=== PATIENT | female | born 1990 | race Caucasian/White ===

== ENCOUNTER 2019-10-28 16:38 | Inpatient (IN) | payer MEDICAID, OTHER ==
[~2019-10-28 16:38] MED LIST: Lactated Ringers 1,000 ML IV SCH
[2019-10-28] MEDS ORDERED: Sodium Chloride 0.9% 10 ML Syringe FLUSH PRN (16:41)
--- NOTE | 2019-10-28 16:51 | PCM.LDHP ---
L&D History of Present Illness - General Date of Service: 10/28/19 Admit Problem/Dx: Patient Status Order with Admit Dx/Problem 10/28/19 16:41 Patient Status [ADT] Routine Admission Diagnosis/Problem Admission Diagnosis/Problem Source of Information: Patient History Limitations: Reports: No Limitations - Related Data Allergies/Adverse Reactions: Allergies Allergy/AdvReac Type Severity Reaction Status Date / Time Penicillins Allergy Rash Verified 10/28/19 15:30 Home Medications: Home Meds Pnv No.95/Ferrous Fum/Folic AC [ Multivitamin Tablet] 1 each PO DAILY [History] H&P Review of Systems - Review of Systems: Review Of Systems: See Below General: Reports: No Symptoms HEENT: Reports: No Symptoms Pulmonary: Reports: No Symptoms Cardiovascular: Reports: No Symptoms Gastrointestinal: Reports: No Symptoms Genitourinary: Reports: No Symptoms Musculoskeletal: Reports: No Symptoms Skin: Reports: No Symptoms Psychiatric: Reports: No Symptoms Neurological: Reports: No Symptoms Hematologic/Lymphatic: Reports: No Symptoms Immunologic: Reports: No Symptoms L&D Exam - Exam Exam: See Below - Vital Signs Vital Signs: Last Vital Signs Temp 36.1 C 10/28/19 16:00 Pulse 110 H 10/28/19 16:00 Resp BP 123/85 10/28/19 16:00 Pulse Ox 99 10/28/19 16:00 Weight: 73 kg - OB Specific Movement: Active Heart Tones: Present Heart Rate (FHR) Variability: Moderate (6-25 bmp) - Exam General: Alert, Oriented, Cooperative HEENT: PERRLA, Conjunctiva Clear, EACs Clear, EOMI, Hearing Intact, Mucosa Moist & [place], Nares Patent, Normal Nasal Septum, Posterior Pharynx Clear, TMs Clear Neck: Supple, Trachea Midline Lungs: Clear to Auscultation, Normal Respiratory Effort Cardiovascular: Regular Rate, Regular Rhythm GI/Abdominal Exam: Normal Bowel Sounds, Soft, Non-Tender, No Organomegaly, No Distention, No Abnormal Bruit, No Mass, Pelvis Stable Rectal Exam: Normal Exam, Normal Rectal Tone Genitourinary: Normal external exam, Normal bimanual exam, Normal speculum exam Back Exam: Normal Inspection, Full Range of Motion Extremities: Normal Inspection, Normal Range of Motion, Non-Tender, No Pedal Edema, Normal Capillary Refill Skin: Warm, Dry, Intact Neurological: Cranial Nerves Intact, Reflexes Equal Bilateral Psychiatric: Alert, Normal Affect, Normal Mood - Patient Data Lab Results Last 24 hrs: Laboratory Results - last 24 hr 10/28/19 10/28/19 10/28/19 Range/Units 16:04 16:22 16:33 WBC 11.0 (4.5-11.0) K/uL RBC 3.94 (3.30-5.50) M/uL Hgb 12.4 (12.0-15.0) g/dL Hct 37.8 (36.0-48.0) % MCV 96 (80-98) fL MCH 32 H (27-31) pg MCHC 33 (32-36) % Plt Count 211 (150-400) K/uL Urine Color Yellow (YELLOW) Urine Appearance Clear (CLEAR) Urine pH 7.0 (5.0-8.0) Ur Specific [place] 1.025 (1.008-1.030) Urine Protein Negative (NEGATIVE) mg/dL Urine Glucose (UA) Negative (NEGATIVE) mg/dL Urine Ketones Trace H (NEGATIVE) mg/dL Urine Occult Blood Negative (NEGATIVE) Urine Nitrite Negative (NEGATIVE) Urine Bilirubin Negative (NEGATIVE) Urine Urobilinogen 0.2 (0.2-1.0) EU/dL Ur Leukocyte Esterase Negative (NEGATIVE) Urine RBC Not seen (0-5) Urine WBC 0-5 (0-5) Ur Epithelial Cells Moderate Amorphous Sediment Not seen Urine Bacteria Moderate Urine Mucus Few Urine Opiates Screen Negative (NEGATIVE) Ur Oxycodone Screen Negative (NEGATIVE) Urine Methadone Screen Negative (NEGATIVE) Ur Propoxyphene Screen Negative (NEGATIVE) Ur Barbiturates Screen Negative (NEGATIVE) Ur Tricyclics Screen Negative (NEGATIVE) Ur Phencyclidine Scrn Negative (NEGATIVE) Ur Amphetamine Screen Negative (NEGATIVE) U Methamphetamines Scrn Negative (NEGATIVE) Urine MDMA Screen Negative (NEGATIVE) U Benzodiazepines Scrn Negative (NEGATIVE) U Cocaine Metab Screen Negative (NEGATIVE) U Marijuana (THC) Screen Negative (NEGATIVE) Result Diagrams: 10/28/19 16:33 - Problem List (1) Low amniotic fluid SNOMED Code(s): 10598065 ICD Code: O41.00X0 - OLIGOHYDRAMNIOS, UNSP TRIMESTER, NOT APPLICABLE OR UNSP Status: Acute Current Visit: Yes Qualifiers: Fetus number: single or unspecified fetus (2) Abnormal ultrasound SNOMED Code(s): 925653887 ICD Code: R93.89 - ABNORMAL FINDINGS ON DX IMAGING OF OTH BODY STRUCTURES Status: Acute Current Visit: Yes (3) NST (non-stress test) reactive SNOMED Code(s): 733506379 ICD Code: Z36.89 - ENCOUNTER FOR OTHER SPECIFIED SCREENING Status : Acute Current Visit: Yes (4) SNOMED Code(s): 52485149 ICD Code: Z34.90 - ENCNTR FOR SUPRVSN OF NORMAL , UNSP, UNSP TRIMESTER Status: Acute Current Visit: Yes Qualifiers: Weeks of gestation: 38 weeks Qualified Code(s): Z3A.38 - 38 weeks gestation of (5) Delivery by section SNOMED Code(s): 172317545 ICD Code: TEC1141 - Status: Acute Current Visit: Yes (6) History of drug abuse SNOMED Code(s): 808282237 ICD Code: F19.11 - OTHER PSYCHOACTIVE SUBSTANCE ABUSE, IN REMISSION Status : Acute Current Visit: Yes (7) History of incarceration SNOMED Code(s): 555217863 ICD Code: Z78.9 - OTHER SPECIFIED HEALTH STATUS Status: Acute Current Visit: Yes Problem List Initiated/Reviewed/Updated: Yes Orders Last 24hrs: Active Orders 24 hr Category Date Time Status Patient Status [ADT] Routine ADT 10/28/19 16:41 Ordered Ambulate [RC] PER UNIT ROUTINE Care 10/28/19 16:41 Ordered Communication Order [RC] ASDIRECTED Care 10/28/19 16:41 Ordered Heart Tones [RC] PER UNIT ROUTINE Care 10/28/19 16:41 Ordered Non Stress Test [RC] Click to Edit Care 10/28/19 16:41 Ordered Notify Provider Vital Signs [RC] PRN Care 10/28/19 16:41 Ordered Notify Provider [RC] PRN Care 10/28/19 16:41 Ordered OB Check [OM.PC] Click to Edit Care 10/28/19 15:30 Ordered VTE/DVT Education [RC] Click to Edit Care 10/28/19 16:44 Ordered Vital Signs [RC] PER UNIT ROUTINE Care 10/28/19 16:41 Ordered TYPE AND SCREEN [BBK] Urgent Lab 10/28/19 16:41 Ordered Lactated Ringers [Ringers, Lactated] 1,000 ml Med 10/28/19 16:30 Active IV BOLUS Sodium Chloride 0.9% [Saline Flush] Med 10/28/19 16:41 Ordered 10 ml FLUSH ASDIRECTED PRN DVT/VTE Prophylaxis Reflex [OM.PC] Routine Oth 10/28/19 16:41 Ordered Saline Lock Insert [OM.PC] Routine Oth 10/28/19 16:41 Ordered Resuscitation Status Routine Resus Stat 10/28/19 16:41 Ordered Medication Orders Lactated Ringer's (Ringers, Lactated) 1,000 mls @ 999 mls/hr IV BOLUS PAPITO Assessment/Plan Comment:: 10/28/2019 29 yo came into clinic for routine visit today-fetus was found to be tachycardic on further exam with a biophysical profile was noted to have less than 6 for ARNOLDO. Decision was made to proceed with RCS today instead of planned next week. Dr. Carey and team notified.
[2019-10-28] MEDS ORDERED: ePHEDrine 50 MG/ML SDV ONE (16:53)
[2019-10-28] MEDS ORDERED: cefOXitin 2 GM Vial ONE (16:53)
[2019-10-28] MEDS ORDERED: cefOXitin 1 GM Vial ONE (16:54)
[2019-10-28] MEDS ORDERED: Oxytocin 10 Units/1 ML SDV ONE ×2 (16:54)
[2019-10-28] MEDS ORDERED: Ondansetron 4 MG/2 ML SDV ONE (17:59)
[2019-10-28] MEDS ORDERED: Dexamethasone 4 MG/ML SDV ONE (17:59)
[2019-10-28] MEDS ORDERED: fentaNYL 250 MCG/5 ML SDV ONE (18:01)
[2019-10-28] MEDS ORDERED: HYDROmorphone/Normal Saline 15 MG/30 ML PCA IV ONE (19:18)
[2019-10-28] MEDS ORDERED: HYDROmorphone/Normal Saline 15 MG/30 ML PCA IV PRN (19:26)
[2019-10-28] MEDS ORDERED: Naloxone 0.4 MG/ML SDV IV PRN (19:26)
[2019-10-28] MEDS ORDERED: Ondansetron 4 MG/2 ML SDV IVPUSH PRN (19:34)
[2019-10-28] MEDS ORDERED: hydrOXYzine HCL 100 MG/2 ML SDV IM PRN (19:36)
[2019-10-28] MEDS ORDERED: Acetaminophen/HYDROcodone 325-5 MG Tab PO PRN (19:45)
[2019-10-28] MEDS ORDERED: Oxytocin 10 Units/1 ML SDV IV SCH ×2 (19:45)
[2019-10-28] MEDS: Ibuprofen 600 MG Tab PO SCH (19:50)
[2019-10-28] MEDS ORDERED: Acetaminophen 500 MG Tab PO SCH (20:00)
[2019-10-28] MEDS: Dextrose 5%-Lactated Ringers 1,000 ML IV SCH (23:12)
[2019-10-28] MEDS: cefOXitin 2 GM in Sodium Chloride 0.9% 50 ML IV SCH (23:12)
[2019-10-28] MEDS: Acetaminophen 500 MG Tab PO SCH (23:12)
[2019-10-29] MEDS: Dextrose 5%-Lactated Ringers 1,000 ML IV SCH (03:47)
[2019-10-29] MEDS: Ibuprofen 600 MG Tab PO SCH ×4 (03:50→20:11)
[2019-10-29] MEDS: Acetaminophen 500 MG Tab PO SCH (06:02)
[2019-10-29] MEDS: cefOXitin 2 GM in Sodium Chloride 0.9% 50 ML IV SCH ×4 (06:03→23:55)
[2019-10-29] MEDS ORDERED: Dextrose 5%-Lactated Ringers 1,000 ML IV SCH (07:00)
[2019-10-29] MEDS: Acetaminophen/HYDROcodone 325-5 MG Tab PO PRN ×4 (08:16→21:25)
[2019-10-29] MEDS: Bisacodyl 5 MG Tab PO SCH ×2 (09:42→20:12)
[2019-10-29] MEDS: Docusate Sodium 100 MG Cap PO SCH ×2 (09:42→20:12)
--- NOTE | 2019-10-29 09:45 | PN ---
DATE OF SERVICE: 10/29/2019 SUBJECTIVE: Merlene is postoperative day #1 following a repeat for term with history of previous but moderately low on amniotic fluid. She reports her pain is controlled. Vital signs have been stable. Afebrile. Oral intake 900, and urine output via Navarro catheter is 1250. REVIEW OF SYSTEMS: Remainder of review of systems negative for any pertinent positives and negatives. OBJECTIVE: GENERAL: Merlene Alvarez is a 29-year-old female. VITAL SIGNS: TPR at 0224; 97.6, 82, 16, blood pressure 99/82. HEENT: Negative. Teeth in poor condition. NECK: Supple. HEART: Regular rate and rhythm. LUNGS: Clear. ABDOMEN: Dressing dry and intact. EXTREMITIES: Without peripheral edema. ASSESSMENT: Repeat and repair of incarcerated incisional hernia for term with history of previous with moderately low amniotic fluid and incarcerated incisional hernia. Date of surgery 10/28/2019. Surgeon: Rubio Carey MD. PLAN: 1. May shower. 2. Discontinue Navarro catheter. 3. Regular diet. 4. [place] 5/325 mg 1 to 2 every 4 hours p.r.n. pain. 5. Dulcolax 20 mg b.i.d. until the patient has a bowel movement. 6. Decrease IV of D5LR to 100 mL per hour. 7. Colace 100 mg p.o. b.i.d. 8. May convert IV to saline lock when oral intake adequate at 1000 mL. 9. Discontinue E [employer]. 10.Discontinue continuous pulse ox. 11.Work on good pulmonary function. 12.We will evaluate p.r.n. or in a.m. Karolina Logan PA-C /[id number]
[2019-10-30] MEDS: Acetaminophen/HYDROcodone 325-5 MG Tab PO PRN ×4 (02:25→18:09)
[2019-10-30] MEDS: Ibuprofen 600 MG Tab PO SCH ×3 (02:25→13:49)
[2019-10-30] MEDS: cefOXitin 2 GM in Sodium Chloride 0.9% 50 ML IV SCH (06:02)
[2019-10-30] MEDS: Bisacodyl 5 MG Tab PO SCH (08:29)
[2019-10-30] MEDS: Docusate Sodium 100 MG Cap PO SCH (08:29)
--- NOTE | 2019-10-30 10:00 | PN ---
DATE OF SERVICE: 10/30/2019 SUBJECTIVE: Merlene is a 29-year-old female. She is postoperative day 2 following a C- section. Pain is controlled. She has been up ambulating. Vital signs have been stable. She has been afebrile. Oral intake 3400. Urine output, she has been voiding independently. She did have 3 bowel movements. Remainder of review of systems negative for any pertinent positives and negatives. OBJECTIVE: GENERAL: Merlene Alvarez is a 29-year-old female, alert and orientated. VITAL SIGNS: TPR at 0701; 96.9, 85, 16. Blood pressure 114/80. HEENT: Negative. NECK: Supple. HEART: Regular rate and rhythm. LUNGS: Clear. ABDOMEN: Abdominal binder is on. EXTREMITIES: Without peripheral edema. ASSESSMENT: Repeat section and repair of incarcerated incisional hernia for term with history of previous , with moderately low amniotic fluid, incarcerated incisional hernia. Date of surgery: 10/28/2019. Surgeon: Rubio Carey MD. PLAN: 1. We will continue same care. 2. We will evaluate p.r.n. or in a.m. Karolina Logan PA-C /[id number]
--- NOTE | 2019-11-01 08:22 | OR ---
DATE OF PROCEDURE: 10/28/2019 SURGEON: Rubio Carey MD PREOPERATIVE DIAGNOSIS: Term with history of previous section and markedly low amniotic fluid level. POSTOPERATIVE DIAGNOSES: 1. Term with history of previous section and markedly low amniotic fluid level. 2. Incarcerated incisional hernia. OPERATIVE PROCEDURE: 1. Repeat section (82547). 2. Repair of incarcerated incisional hernia (42589). ANESTHESIA: Spinal. PRECISION PRINTING WORKER: Lily Person CNM INDICATION FOR PROCEDURE: This is a 29-year-old, who was scheduled for repeat section, who, on biophysical profile today, was noted to have extremely low amniotic fluid levels. Given this, at this point, she is going to undergo a repeat section. Potential risks of procedure including bleeding, infection, injury to the baby and/or mother were all reviewed, and the patient wishes to proceed. DETAIL OF PROCEDURE: The patient was taken to the operating room, and after spinal anesthetic was placed, was positioned in supine position with a roll underneath the right hip. Navarro catheter was inserted, and the abdomen prepped and draped. The previous transverse Pfannenstiel incision was made and carried down through the skin and subcutaneous tissue, then through the rectus fascia. Separate tissue flaps were then raised superiorly and inferiorly. On the right lateral aspect of the rectus muscle on this lower lateral aspect, the patient was noted to have some prolapse of preperitoneal fat through a hernia in that location, which was subsequently repaired. The midline between the rectus muscles was then divided, and the peritoneum overlying the area of bladder was divided and the bladder reflected downward. A transverse uterine incision was made, and a viable male was delivered through a vertex presentation. Cord was clamped, and cut and routine care was given off the field per Lily Person CNM. scores at one and five minutes were 7 and 8 respectively. The patient was given IV intrauterine oxytocin and IV cefoxitin. Both placenta and membranes were then delivered without difficulty, and good uterine contractions were noted. The uterine incision was then closed with 2 layers of 2-0 Vicryl stitch and the bladder flap was reapproximated with 2-0 Vicryl stitch as well. The uterus then placed back into the peritoneal cavity. The hernia contents were then excised in the lateral aspect of the lower rectus muscle. The fascial defect was then approximated with a running #1 Vicryl stitch. The midline musculature was then reapproximated with a #2 Vicryl stitch, as was the rectus sheath. Subcutaneous tissue was approximated with some 4-0 Vicryl stitch and the skin with 4-0 Vicryl subcuticular stitch and surgical glue applied. The patient was taken to the recovery room in satisfactory condition. There were no evident complications. Rubio Carey MD /[id number] MTDD
--- NOTE | 2019-11-03 09:31 | DISCH ---
ADMISSION DIAGNOSES: 1. Term with history of previous and marked low amniotic fluid level. 2. Incarcerated incisional hernia. POSTOPERATIVE DIAGNOSES: Term with history of previous and marked low amniotic fluid. OPERATIVE PROCEDURE: Repeat and repair of incarcerated incisional hernia. Date of surgery 10/28/2019. Surgeon: Rubio Carey MD. HISTORY: Merlene Alvarez is a 29-year-old female who was scheduled for a repeat , who on biophysical profile was noted to have extremely low amniotic fluid. After preoperative evaluation and discussion of possible risks and possible complications, she wished to proceed with a on day of exam. HOSPITAL COURSE: Merlene had her with repair of incarcerated incisional hernia on 10/28/2019. She had no operative complications. On 10/29/2019, vital signs were stable. She was up ambulating, given bowel stimulation, regular diet. On 10/30/2019, she was having bowel movements, up ambulating, incision looked good, and pain was controlled and she was able to be discharged to home later in the evening. PHYSICAL EXAMINATION: GENERAL: Merlene Alvarez is a 29-year-old female, alert and orientated. Height 5 feet 3 inches, weight is 160 pounds, BMI 28.3. VITAL SIGNS: On TPR, 97.7, 79, 16, blood pressure 117/61. HEENT: Negative. NECK: Supple. HEART: Regular rate and rhythm. LUNGS: Clear. ABDOMEN: incision looks good. It is glued. Abdominal binder is on. EXTREMITIES: Without peripheral edema. DISPOSITION: Discharged to home. CONDITION: Stable and improving. FOLLOWUP: Appointment with Karolina Logan PA-C, on 11/12, at 10 a.m. and scheduled with Francisca Forrest in 6 weeks. HOME MEDICATION: 1. [place] 5/325 mg 1 every 6 hours p.r.n. pain #28. 2. Ibuprofen 600 mg q.6 hours p.r.n. pain #40. 3. Continue vitamins. DIET: Regular diet as tolerated. Drink 8 to 10 glasses of water a day. ACTIVITY: As tolerated. No lifting greater than 10 pounds for 6 weeks. Shower/ bathing: May shower. No tub bathing or swimming. Keep operative site clean and dry. Notify provider if any fever, increased pain, swelling, redness, drainage.
== END 2019-10-30 18:30 | disposition home or self-care (01) | DRG 787 ==
LOC: JP.SDS 16:38 → JP.OB 16:46 → OBSVTOIN 17:50 → JP.MS 18:32
PROVIDERS: ADMIT Surgery; ATTEND Surgery
PROC: 10D00Z1 Extraction of Products of Conception, Low, Open Approach (ICD-10-PCS; principal; 2019-10-28)
PROC: 0WQF0ZZ Repair Abdominal Wall, Open Approach (ICD-10-PCS; 2019-10-28)
DX: O34.211 Maternal care for low transverse scar from previous cesarean delivery (principal); O41.03X0 Oligohydramnios, third trimester, not applicable or unspecified; K43.0 Incisional hernia with obstruction, without gangrene; O99.62 Diseases of the digestive system complicating childbirth; Z37.0 Single live birth; Z3A.38 38 weeks gestation of pregnancy
CPT/HCPCS: 36415; 59409; 80305-QW; 81001; 85025; 85027; 86850; 86900; 86901; 88302; 88307; 94762; 99211; A9270-GY; J0694; J1100; J1170; J1790; J2405; J2590; J3010; J3410; J7050; J7120; J7121

== ENCOUNTER 2020-09-22 15:25 | Inpatient (IN) | payer MEDICAID ==
--- NOTE | 2020-09-22 16:25 | PCM.LDHP ---
L&D History of Present Illness - General Date of Service: 09/22/20 Admit Problem/Dx: Admission Diagnosis/Problem Admission Diagnosis/Problem Source of Information: Patient History Limitations: Reports: No Limitations - History of Present Illness Introduction:: 09/22/20 Patient admitted today at 37 4/7 weeks due to IUGR and umbilical artery increased pressure at 3.19-3.95 today. A call was placed to [facility] who has been co managing for the IUGR and they recommend delivery today. She is O positive blood type, C/G neg, HIV/Hep C/B/RPR all non reactive, GBS negative. BPP today 01/29 and NST reactive. Mother has history of drug abuse but not with this . 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: : 5 Para: 4 LMP (Approximate): - Infectious Disease History Infectious Disease History: Reports: None Social & Family History - Family History Family Medical History: No Pertinent Family History - Tobacco Use Tobacco Use Status *Q: Never Tobacco User Second Hand Smoke Exposure: No - Caffeine Use Caffeine Use: Reports: Coffee - Recreational Drug Use Recreational Drug Use: No H&P Review of Systems - Review of Systems: Review Of Systems: See Below General: Reports: No Symptoms HEENT: Reports: No Symptoms Pulmonary: Reports: No Symptoms Cardiovascular: Reports: No Symptoms Gastrointestinal: Reports: No Symptoms Genitourinary: Reports: No Symptoms Musculoskeletal: Reports: No Symptoms Skin: Reports: No Symptoms Psychiatric: Reports: No Symptoms Neurological: Reports: No Symptoms Hematologic/Lymphatic: Reports: No Symptoms Immunologic: Reports: No Symptoms L&D Exam - Exam Exam: See Below - Vital Signs Vital Signs: Last Vital Signs Temp 36.6 C 09/22/20 15:42 Pulse 82 09/22/20 15:42 Resp 18 09/22/20 15:42 BP 111/58 L 09/22/20 15:42 Pulse Ox 96 09/22/20 15:42 Weight: 76 kg - OB Specific Movement: Active Heart Tones: Present Heart Rate (FHR) Variability: Moderate (6-25 bmp) Presentation: Vertex Estimated Weight: 5 lb 5 oz on US today - Exam General: Alert, Oriented HEENT: PERRLA, Conjunctiva Clear, EOMI, Mucosa Moist & [place], Nares Patent, Normal Nasal Septum, Pupils Equal, Pupils Reactive Neck: Supple, Trachea Midline Lungs: Clear to Auscultation, Normal Respiratory Effort Cardiovascular: Regular Rate, Regular Rhythm GI/Abdominal Exam: Normal Bowel Sounds, Soft, Non-Tender, Pelvis Stable Rectal Exam: Normal Exam, Normal Rectal Tone Genitourinary: Normal external exam. No: Vaginal bleeding Back Exam: Normal Inspection, Full Range of Motion Extremities: Normal Inspection, Normal Range of Motion, Non-Tender, No Pedal Edema, Normal Capillary Refill Skin: Warm, Dry, Intact Neurological: Cranial Nerves Intact, Reflexes Equal Bilateral Psychiatric: Alert, Normal Affect, Normal Mood - Patient Data Lab Results Last 24 hrs: Laboratory Results - last 24 hr 09/22/20 09/22/20 09/22/20 Range/Units 15:33 15:33 15:38 WBC 10.8 (4.5-11.0) K/uL RBC 3.80 (3.30-5.50) M/uL Hgb 11.5 L (12.0-15.0) g/dL Hct 35.7 L (36.0-48.0) % MCV 94 (80-98) fL MCH 30 (27-31) pg MCHC 32 (32-36) % Plt Count 256 (150-400) K/uL Urine Color Yellow (YELLOW) Urine Appearance Clear (CLEAR) Urine pH 7.0 (5.0-8.0) Ur Specific [place] 1.025 (1.008-1.030) Urine Protein Negative (NEGATIVE) mg/dL Urine Glucose (UA) Negative (NEGATIVE) mg/dL Urine Ketones 15 H (NEGATIVE) mg/dL Urine Occult Blood Negative (NEGATIVE) Urine Nitrite Negative (NEGATIVE) Urine Bilirubin Negative (NEGATIVE) Urine Urobilinogen 0.2 (0.2-1.0) EU/dL Ur Leukocyte Esterase Negative (NEGATIVE) Urine RBC 0-5 (0-5) Urine WBC 0-5 (0-5) Ur Epithelial Cells Many Amorphous Sediment Not seen Urine Bacteria Moderate Urine Mucus Not seen Urine Opiates Screen Negative (NEGATIVE) Ur Oxycodone Screen Negative (NEGATIVE) Urine Methadone Screen Negative (NEGATIVE) Ur Propoxyphene Screen Negative (NEGATIVE) Ur Barbiturates Screen Negative (NEGATIVE) Ur Tricyclics Screen Negative (NEGATIVE) Ur Phencyclidine Scrn Negative (NEGATIVE) Ur Amphetamine Screen Negative (NEGATIVE) U Methamphetamines Scrn Negative (NEGATIVE) Urine MDMA Screen Negative (NEGATIVE) U Benzodiazepines Scrn Negative (NEGATIVE) U Cocaine Metab Screen Negative (NEGATIVE) U Marijuana (THC) Screen Negative (NEGATIVE) Result Diagrams: 09/22/20 15:33 - Problem List (1) IUGR (intrauterine growth restriction) affecting care of mother SNOMED Code(s): 814010654 ICD Code: O36.5990 - MATERN CARE FOR OTH OR SUSP POOR FETL GRTH, UNSP TRI, UNSP Status: Acute Current Visit: Yes (2) Term SNOMED Code(s): 28087654 ICD Code: Z34.90 - ENCNTR FOR SUPRVSN OF NORMAL , UNSP, UNSP TRIMESTER Status: Acute Current Visit: Yes Problem List Initiated/Reviewed/Updated: Yes Orders Last 24hrs: Active Orders 24 hr Category Date Time Status CORONAVIRUS COVID-19 EDA [MOLEC] Routine Lab 09/22/20 15:59 Received TYPE AND SCREEN [BBK] Urgent Lab 09/22/20 15:33 Ordered Assessment/Plan Comment:: 09/22/20 here for repeat section at 37 4/7 weeks due to IUGR and umbilical artery doppler at upper limits BPP 8/8 NST reactive EFW 5 lb 5 oz on US today UDS has been negative all of O positive blood type GBS negative rubella immune HIV/hep B/C/RPR all non reactive Plan: Repeat section today, non urgent Plans to bottle feed Anticipate boy
[2020-09-22] MEDS ORDERED: ePHEDrine 50 MG/ML SDV ONE (16:38)
[2020-09-22] MEDS ORDERED: Oxytocin 10 Units/1 ML SDV ONE (16:38)
[2020-09-22] MEDS ORDERED: Lactated Ringers 1,000 ML ONE (16:38)
[2020-09-22] MEDS ORDERED: Sodium Chloride 0.9% 20 ML ONE (16:38)
[2020-09-22] MEDS ORDERED: Phenylephrine 1% 10 MG/ML SDV ONE (16:38)
[2020-09-22] MEDS ORDERED: Ondansetron 4 MG/2 ML SDV ONE (16:38)
[2020-09-22 16:41] LABS: CORONAVIRUS COVID-19 NAA NEGATIVE (NEGATIVE)
[2020-09-22] MEDS ORDERED: Lactated Ringers 1,000 ML IV SCH (16:45)
[2020-09-22] MEDS: Oxytocin 10 Units/1 ML SDV ONE ×2 (16:52→17:26)
[2020-09-22] MEDS ORDERED: ePHEDrine 50 MG/ML SDV IVPUSH PRN (17:01)
[2020-09-22] MEDS ORDERED: Bisacodyl 10 MG Supp RECTAL PRN (17:01)
[2020-09-22] MEDS ORDERED: Ondansetron 4 MG Tab.DIS PO PRN (17:01)
[2020-09-22] MEDS ORDERED: Acetaminophen/HYDROcodone 325-5 MG Tab PO PRN (17:01)
[2020-09-22] MEDS ORDERED: Naloxone 0.4 MG/ML SDV IVPUSH PRN (17:01)
[2020-09-22] MEDS ORDERED: Witch Hazel Medicated Pads 100/Jar TOP ONE (17:01)
[2020-09-22] MEDS ORDERED: Lanolin 100% Cream 40 GM Tube TOP ONE (17:01)
[2020-09-22] MEDS ORDERED: diphenhydrAMINE 50 MG/ML SDV IVPUSH PRN (17:01)
[2020-09-22] MEDS ORDERED: Simethicone 80 MG Tab.Chew PO PRN (17:01)
[2020-09-22] MEDS ORDERED: Benzocaine 20% Top Spray 56 GM Bottle TOP ONE (17:01)
[2020-09-22] MEDS ORDERED: Ibuprofen 800 MG Tab PO PRN (17:01)
[2020-09-22] MEDS ORDERED: Sodium Chloride 0.9% 10 ML ONE (17:10)
[2020-09-22] MEDS ORDERED: ceFAZolin 1 GM Vial ONE (17:10)
[2020-09-22] MEDS ORDERED: Witch Hazel Medicated Pads 100/Jar TOP PRN (17:22)
[2020-09-22] MEDS ORDERED: Lanolin 100% Cream 40 GM Tube TOP PRN (17:23)
[2020-09-22] MEDS ORDERED: Benzocaine 20% Top Spray 56 GM Bottle TOP PRN (17:23)
[2020-09-22] MEDS ORDERED: fentaNYL 100 MCG/2 ML SDV IVPUSH ONE (18:25)
[2020-09-22] MEDS: Morphine 2 MG/ML SYRINGE IVPUSH PRN ×2 (20:11→21:24)
[2020-09-22] MEDS: oxyCODONE 5 MG Tab PO PRN (23:32)
[2020-09-23] MEDS: oxyCODONE 5 MG Tab PO PRN ×5 (02:17→21:32)
[2020-09-23] MEDS: Ibuprofen 800 MG Tab PO SCH ×3 (02:17→19:37)
[2020-09-23] MEDS ORDERED: Ibuprofen 800 MG Tab PO PRN (03:00)
[2020-09-23] MEDS ORDERED: oxyCODONE 5 MG Tab PO PRN (03:37)
[2020-09-23] MEDS: Morphine 2 MG/ML SYRINGE IVPUSH PRN ×2 (07:43→10:28)
--- NOTE | 2020-09-23 08:09 | PCM.PNPP ---
- General Info Date of Service: 09/23/20 Functional Status: Reports: Tolerating Diet, Ambulating, Urinating, Other (pain poorly controlled overnight) Pain Score: 7 - Review of Systems General: Reports: Fatigue HEENT: Reports: No Symptoms Pulmonary: Reports: No Symptoms Cardiovascular: Reports: No Symptoms Gastrointestinal: Reports: No Symptoms Genitourinary: Reports: No Symptoms Musculoskeletal: Reports: No Symptoms, Back Pain Skin: Reports: No Symptoms Neurological: Reports: No Symptoms Psychiatric: Reports: No Symptoms - General Info Date of Service: 09/23/20 - Patient Data Vital Signs - Most Recent: Last Vital Signs Temp 36.3 C 09/23/20 07:25 Pulse 70 09/23/20 07:25 Resp 18 09/23/20 07:25 BP 118/71 09/23/20 07:25 Pulse Ox 99 09/23/20 07:25 Weight - Most Recent: 76 kg I&O - Last 24 Hours: Intake & Output 09/22/20 09/23/20 09/23/20 22:59 06:59 14:59 Intake Total 260 1027 Output Total 450 Balance 260 577 Lab Results - Last 24 Hours: Laboratory Results - last 24 hr 09/22/20 09/22/20 09/22/20 Range/Units 15:33 15:33 15:33 WBC 10.8 (4.5-11.0) K/uL RBC 3.80 (3.30-5.50) M/uL Hgb 11.5 L (12.0-15.0) g/dL Hct 35.7 L (36.0-48.0) % MCV 94 (80-98) fL MCH 30 (27-31) pg MCHC 32 (32-36) % Plt Count 256 (150-400) K/uL Neut % (Auto) (36-66) % Lymph % (Auto) (24-44) % Morris % (Auto) (2-6) % Eos % (Auto) (2-4) % Baso % (Auto) (0-1) % Sodium (140-148) mmol/L Potassium (3.6-5.2) mmol/L Chloride (100-108) mmol/L Carbon Dioxide (21-32) mmol/L Anion Gap (5.0-14.0) mmol/L BUN (7-18) mg/dL Creatinine (0.6-1.0) mg/dL Est Cr Clr Drug Dosing mL/min Estimated GFR (MDRD) (>60) Glucose (74-106) mg/dL Calcium (8.5-10.1) mg/dL Urine Color Yellow (YELLOW) Urine Appearance Clear (CLEAR) Urine pH 7.0 (5.0-8.0) Ur Specific [place] 1.025 (1.008-1.030) Urine Protein Negative (NEGATIVE) mg/dL Urine Glucose (UA) Negative (NEGATIVE) mg/dL Urine Ketones 15 H (NEGATIVE) mg/dL Urine Occult Blood Negative (NEGATIVE) Urine Nitrite Negative (NEGATIVE) Urine Bilirubin Negative (NEGATIVE) Urine Urobilinogen 0.2 (0.2-1.0) EU/dL Ur Leukocyte Esterase Negative (NEGATIVE) Urine RBC 0-5 (0-5) Urine WBC 0-5 (0-5) Ur Epithelial Cells Many Amorphous Sediment Not seen Urine Bacteria Moderate Urine Mucus Not seen Urine Opiates Screen (NEGATIVE) Ur Oxycodone Screen (NEGATIVE) Urine Methadone Screen (NEGATIVE) Ur Propoxyphene Screen (NEGATIVE) Ur Barbiturates Screen (NEGATIVE) Ur Tricyclics Screen (NEGATIVE) Ur Phencyclidine Scrn (NEGATIVE) Ur Amphetamine Screen (NEGATIVE) U Methamphetamines Scrn (NEGATIVE) Urine MDMA Screen (NEGATIVE) U Benzodiazepines Scrn (NEGATIVE) U Cocaine Metab Screen (NEGATIVE) U Marijuana (THC) Screen (NEGATIVE) Influenza Type A RNA (NEGATIVE) RSV RNA (INAAT) (NEGATIVE) Influenza Type B RNA (NEGATIVE) SARS-CoV-2 RNA (EDA) (NEGATIVE) Blood Type O POSITIVE Gel Antibody Screen Negative 09/22/20 09/22/20 09/23/20 Range/Units 15:38 15:59 05:49 WBC 12.0 H (4.5-11.0) K/uL RBC 3.47 (3.30-5.50) M/uL Hgb 10.7 L (12.0-15.0) g/dL Hct 32.7 L (36.0-48.0) % MCV 94 (80-98) fL MCH 31 (27-31) pg MCHC 33 (32-36) % Plt Count 192 (150-400) K/uL Neut % (Auto) 74 H (36-66) % Lymph % (Auto) 15 L (24-44) % Morris % (Auto) 10 H (2-6) % Eos % (Auto) 1 L (2-4) % Baso % (Auto) 0 (0-1) % Sodium (140-148) mmol/L Potassium (3.6-5.2) mmol/L Chloride (100-108) mmol/L Carbon Dioxide (21-32) mmol/L Anion Gap (5.0-14.0) mmol/L BUN (7-18) mg/dL Creatinine (0.6-1.0) mg/dL Est Cr Clr Drug Dosing mL/min Estimated GFR (MDRD) (>60) Glucose (74-106) mg/dL Calcium (8.5-10.1) mg/dL Urine Color (YELLOW) Urine Appearance (CLEAR) Urine pH (5.0-8.0) Ur Specific [place] (1.008-1.030) Urine Protein (NEGATIVE) mg/dL Urine Glucose (UA) (NEGATIVE) mg/dL Urine Ketones (NEGATIVE) mg/dL Urine Occult Blood (NEGATIVE) Urine Nitrite (NEGATIVE) Urine Bilirubin (NEGATIVE) Urine Urobilinogen (0.2-1.0) EU/dL Ur Leukocyte Esterase (NEGATIVE) Urine RBC (0-5) Urine WBC (0-5) Ur Epithelial Cells Amorphous Sediment Urine Bacteria Urine Mucus Urine Opiates Screen Negative (NEGATIVE) Ur Oxycodone Screen Negative (NEGATIVE) Urine Methadone Screen Negative (NEGATIVE) Ur Propoxyphene Screen Negative (NEGATIVE) Ur Barbiturates Screen Negative (NEGATIVE) Ur Tricyclics Screen Negative (NEGATIVE) Ur Phencyclidine Scrn Negative (NEGATIVE) Ur Amphetamine Screen Negative (NEGATIVE) U Methamphetamines Scrn Negative (NEGATIVE) Urine MDMA Screen Negative (NEGATIVE) U Benzodiazepines Scrn Negative (NEGATIVE) U Cocaine Metab Screen Negative (NEGATIVE) U Marijuana (THC) Screen Negative (NEGATIVE) Influenza Type A RNA Negative (NEGATIVE) RSV RNA (INAAT) Negative (NEGATIVE) Influenza Type B RNA Negative (NEGATIVE) SARS-CoV-2 RNA (EDA) Negative (NEGATIVE) Blood Type Gel Antibody Screen 09/23/20 Range/Units 05:49 WBC (4.5-11.0) K/uL RBC (3.30-5.50) M/uL Hgb (12.0-15.0) g/dL Hct (36.0-48.0) % MCV (80-98) fL MCH (27-31) pg MCHC (32-36) % Plt Count (150-400) K/uL Neut % (Auto) (36-66) % Lymph % (Auto) (24-44) % Morris % (Auto) (2-6) % Eos % (Auto) (2-4) % Baso % (Auto) (0-1) % Sodium 144 (140-148) mmol/L Potassium 3.9 (3.6-5.2) mmol/L Chloride 106 (100-108) mmol/L Carbon Dioxide 26 (21-32) mmol/L Anion Gap 12.2 (5.0-14.0) mmol/L BUN 7 (7-18) mg/dL Creatinine 0.7 (0.6-1.0) mg/dL Est Cr Clr Drug Dosing 98.98 mL/min Estimated GFR (MDRD) > 60 (>60) Glucose 81 (74-106) mg/dL Calcium 8.5 (8.5-10.1) mg/dL Urine Color (YELLOW) Urine Appearance (CLEAR) Urine pH (5.0-8.0) Ur Specific [place] (1.008-1.030) Urine Protein (NEGATIVE) mg/dL Urine Glucose (UA) (NEGATIVE) mg/dL Urine Ketones (NEGATIVE) mg/dL Urine Occult Blood (NEGATIVE) Urine Nitrite (NEGATIVE) Urine Bilirubin (NEGATIVE) Urine Urobilinogen (0.2-1.0) EU/dL Ur Leukocyte Esterase (NEGATIVE) Urine RBC (0-5) Urine WBC (0-5) Ur Epithelial Cells Amorphous Sediment Urine Bacteria Urine Mucus Urine Opiates Screen (NEGATIVE) Ur Oxycodone Screen (NEGATIVE) Urine Methadone Screen (NEGATIVE) Ur Propoxyphene Screen (NEGATIVE) Ur Barbiturates Screen (NEGATIVE) Ur Tricyclics Screen (NEGATIVE) Ur Phencyclidine Scrn (NEGATIVE) Ur Amphetamine Screen (NEGATIVE) U Methamphetamines Scrn (NEGATIVE) Urine MDMA Screen (NEGATIVE) U Benzodiazepines Scrn (NEGATIVE) U Cocaine Metab Screen (NEGATIVE) U Marijuana (THC) Screen (NEGATIVE) Influenza Type A RNA (NEGATIVE) RSV RNA (INAAT) (NEGATIVE) Influenza Type B RNA (NEGATIVE) SARS-CoV-2 RNA (EDA) (NEGATIVE) Blood Type Gel Antibody Screen Med Orders - Current: Current Medications Acetaminophen (Acetaminophen 325 Mg Tab) 650 mg PO Q4H PRN PRN Reason: Abdominal Pain Benzocaine (Benzocaine 20% Top [place] 56 Gm Bottle) 0 gm TOP Q4H PRN PRN Reason: to perianal area Bisacodyl (Bisacodyl 10 Mg Supp) 10 mg RECTAL BID PRN PRN Reason: Constipation Diphenhydramine HCl (Diphenhydramine 50 Mg/Ml Sdv) 25 mg IVPUSH Q6H PRN PRN Reason: Itching or Nausea Emollient Ointment (Lanolin 100% Cream 40 Gm Tube) 0 gm TOP ASDIRECTED PRN PRN Reason: TO NIPPLES Ephedrine Sulfate (Ephedrine 50 Mg/Ml Sdv) 5 mg IVPUSH ASDIRECTED PRN PRN Reason: Other Lactated Ringer's (Ringers, Lactated) 1,000 mls @ 125 mls/hr IV ASDIRECTED [facility] Last Admin: 09/22/20 20:58 Dose: 125 mls/hr Documented by: Ibuprofen (Ibuprofen 800 Mg Tab) 800 mg PO Q8H [facility] Last Admin: 09/23/20 02:17 Dose: 800 mg Documented by: Morphine Sulfate (Morphine 2 Mg/Ml Syringe) 1 - 4 mg IVPUSH Q1H PRN PRN Reason: Pain (severe 7-10) Last Admin: 09/23/20 07:43 Dose: 1 mg Documented by: Naloxone HCl (Naloxone 0.4 Mg/Ml Sdv) 0.1 mg IVPUSH ASDIRECTED PRN PRN Reason: Respiratory Depression Ondansetron HCl (Ondansetron 4 Mg Tab.Dis) 8 mg PO Q6H PRN PRN Reason: Nausea/Vomiting Oxycodone HCl (Oxycodone 5 Mg Tab) 5 mg PO Q4H PRN PRN Reason: Pain (moderate 4-6) Last Admin: 09/23/20 05:41 Dose: 5 mg Documented by: Georgiat Multivit/Communications Department Chairperson/Iron/Folic Ac ( Multivitamin With Calcium/Folic Acid/Iron Tab) 1 each PO DAILY [facility] Simethicone (Simethicone 80 Mg Tab.Chew) 80 mg PO Q4H PRN PRN Reason: Gas Witch Sandra (Witch Sandra Medicated Pads 100/Jar) 1 pad TOP ASDIRECTED PRN PRN Reason: to perineum Discontinued Medications Hydrocodone Bitart/Acetaminophen (Acetaminophen/Hydrocodone 325-5 Mg Tab) 1 tab PO Q4H PRN PRN Reason: Pain (moderate 4-6) Last Admin: 09/22/20 19:17 Dose: 1 tab Documented by: Benzocaine (Benzocaine 20% Top [place] 56 Gm Bottle) 0 gm TOP Q4H ONE Stop: 09/22/20 17:02 Last Admin: 09/22/20 18:45 Dose: Not Given Documented by: Cefazolin Sodium (Cefazolin 1 Gm Vial) Confirm Administered Dose 2 gm .ROUTE .STK-MED ONE Stop: 09/22/20 17:11 Emollient Ointment (Lanolin 100% Cream 40 Gm Tube) 0 gm TOP ASDIRECTED ONE Stop: 09/22/20 17:02 Last Admin: 09/22/20 20:16 Dose: Not Given Documented by: Ephedrine Sulfate (Ephedrine 50 Mg/Ml Sdv) Confirm Administered Dose 50 mg .ROUTE .STK-MED ONE Stop: 09/22/20 16:39 Fentanyl (Fentanyl 100 Mcg/2 Ml Sdv) 50 mcg IVPUSH ONETIME ONE Stop: 09/22/20 18:26 Last Admin: 09/22/20 18:33 Dose: 50 mcg Documented by: Sodium Chloride (Normal Saline) Confirm Administered Dose 20 mls @ as directed .ROUTE .STK-MED ONE Stop: 09/22/20 16:39 Lactated Ringer's (Ringers, Lactated) Confirm Administered Dose 1,000 mls @ as directed .ROUTE .STK-MED ONE Stop: 09/22/20 16:39 Sodium Chloride (Normal Saline) Confirm Administered Dose 10 mls @ as directed .ROUTE .STK-MED ONE Stop: 09/22/20 17:11 Ibuprofen (Ibuprofen 800 Mg Tab) 800 mg PO Q8H PRN PRN Reason: mild pain or fever Last Admin: 09/22/20 19:18 Dose: 800 mg Documented by: Ibuprofen (Ibuprofen 800 Mg Tab) 800 mg PO Q8H PRN PRN Reason: Pain Ondansetron HCl (Ondansetron 4 Mg/2 Ml Sdv) Confirm Administered Dose 4 mg .ROUTE .STK-MED ONE Stop: 09/22/20 16:39 Oxycodone HCl (Oxycodone 5 Mg Tab) 5 mg PO Q2H PRN PRN Reason: Pain (moderate 4-6) Last Admin: 09/23/20 02:17 Dose: 5 mg Documented by: Oxytocin (Oxytocin 10 Units/1 Ml Sdv) Confirm Administered Dose 20 unit .ROUTE .STK-MED ONE Stop: 09/22/20 16:39 Oxytocin (Oxytocin 10 Units/1 Ml Sdv) Confirm Administered Dose 10 unit .ROUTE .STK-MED ONE Stop: 09/22/20 16:46 Last Admin: 09/22/20 17:26 Dose: 10 unit Documented by: Phenylephrine HCl (Phenylephrine 1% 10 Mg/Ml Sdv) Confirm Administered Dose 10 mg .ROUTE .STK-MED ONE Stop: 09/22/20 16:39 Witch Sandra (Witch Sandra Medicated Pads 100/Jar) 1 pad TOP ASDIRECTED ONE Stop: 09/22/20 17:02 Last Admin: 09/22/20 20:16 Dose: Not Given Documented by: - Interaction Infant Disposition, : [place] in Room with Family Interaction: Holding Infant Feeding: Bottle Fed Support Person: Significant Other - Recovery Exam Fundal Tone: Firm Fundal Level: 1 Fingerbreadths Below Umbilicus Fundal Placement: Midline Lochia Amount: Small Lochia Color: Rubra/Red Perineum Description: Intact, Minimal Bruising/Swelling Episiotomy/Laceration: None Bladder Status: Voiding Urinary Elimination: Voided - Exam General: Alert, Oriented HEENT: Pupils Equal, Pupils Reactive, Mucous Membr. Moist/[place] Neck: Supple Lungs: Clear to Auscultation, Normal Respiratory Effort Cardiovascular: Regular Rate, Regular Rhythm GI/Abdominal Exam: Normal Bowel Sounds, Soft, No Mass, Pelvis Stable, Tender Extremities: Normal Inspection, Normal Range of Motion, Non-Tender, No Pedal Edema, Normal Capillary Refill Skin: Warm, Dry, Intact Wound/Incisions: Healing Well, No Drainage, Other (well approximated). No: Erythema Neurological: No New Focal Deficit Psy/Mental Status: Alert, Normal Affect, Normal Mood - Problem List & Annotations (1) IUGR (intrauterine growth restriction) affecting care of mother SNOMED Code(s): 388119722 Code(s): O36.5990 - MATERN CARE FOR OTH OR SUSP POOR FETL GRTH, UNSP TRI, UNSP Status: Acute Current Visit: Yes (2) Term SNOMED Code(s): 45444786 Code(s): Z34.90 - ENCNTR FOR SUPRVSN OF NORMAL , UNSP, UNSP TRIMESTER Status: Acute Current Visit: Yes (3) delivery delivered SNOMED Code(s): 476713439 Code(s): O82 - ENCOUNTER FOR DELIVERY WITHOUT INDICATION Status: Acute Current Visit: Yes - Problem List Review Problem List Initiated/Reviewed/Updated: Yes - My Orders Last 24 Hours: My Active Orders 09/22/20 16:45 Lactated Ringers [Ringers, Lactated] 1,000 ml IV ASDIRECTED 09/22/20 18:18 COMP. DRUG SCR, UMBIL.CORD Routine - Assessment Assessment:: 09/23/20 Postop day one, pain somewhat poorly controlled overnight, more of a schedule for PRN pain medications today Catheter removed and patient has already voided Tolerating diet Up walking independently Incision is well approximated, no drainage or s/s of infection AVSS Hgb stable Formula feeding infant - Plan Plan:: 09/22/20 here for repeat section at 37 4/7 weeks due to IUGR and umbilical artery doppler at upper limits BPP 8/8 NST reactive EFW 5 lb 5 oz on US today UDS has been negative all of O positive blood type GBS negative rubella immune HIV/hep B/C/RPR all non reactive Plan: Repeat section today, non urgent Plans to bottle feed Anticipate boy 09/23/20 Routine cares and education Contact [facility] today to let them know patient delivered, active case management social worker, no known issues Work on pain control today Anticipate discharge tomorrow or Saturday
[2020-09-23] MEDS: Acetaminophen 325 MG Tab PO PRN ×4 (09:25→21:32)
[2020-09-23] MEDS: Prenatal Multivitamin with Calcium/Folic Acid/Iron Tab PO SCH (09:26)
--- NOTE | 2020-09-23 11:21 | OR ---
DATE OF PROCEDURE: 09/22/2020 SURGEON: Shiva Jackson MD PROCEDURE: section with aftercare. COMPLICATIONS: None. FINISHING WIRE SAWYER: Ana Smith CNM. RISK: Risks, benefits, alternatives, and limitations including, but not limited to infection, bleeding, injury to baby, bladder, and other risks not listed here were explained to the patient, and they wished to proceed. PREOPERATIVE DIAGNOSIS: Intrauterine growth delay, requiring repeat section/repeat section. POSTOPERATIVE DIAGNOSIS: Intrauterine growth delay, requiring repeat section/repeat section. PROCEDURE IN DETAIL: The patient was placed supine position. The previous Pfannenstiel incision was reopened. This was then carried down to the fascia. It was noted that the fascia was almost ablated at this point due to repeat . There was no clear delineation. Mostly, this was just a field of scar tissue. This was as best as possible from the rectus muscles. The rectus muscle was then opened sharply with Metzenbaum scissors. No enterotomies injury was noted. These were spread in a standard technique. The bladder was then identified and deflected inferiorly. The uterus was opened bluntly. This was noted to be a fairly thin-walled uterus. The baby was then delivered without difficulty. The cord was clamped and cut. The placenta was delivered in total. Once this was completed, the uterus was checked for any evidence of bleeding. None was noted. The uterus was closed with two layers of number #1 blunt Vicryl interrupted locked suture. The bladder was reapproximated. Rectus muscles were approximated with Vicryl suture. Fascia was closed with #1 Vicryl in a running fashion. Each layer was irrigated. Subcutaneous tissues was approximated with 3-0 Vicryl. Skin was closed with 4-0 Vicryl and Dermabond. The patient tolerated the procedure well. Shiva Jackson MD /[id number]
[2020-09-24] MEDS: oxyCODONE 5 MG Tab PO PRN ×2 (01:28→06:51)
[2020-09-24] MEDS: Ibuprofen 800 MG Tab PO SCH ×2 (03:20→08:47)
[2020-09-24] MEDS: Acetaminophen 325 MG Tab PO PRN (06:50)
--- NOTE | 2020-09-24 08:16 | PCM.PNPP ---
- General Info Date of Service: 09/24/20 Functional Status: Reports: Pain Controlled - Review of Systems General: Reports: No Symptoms HEENT: Reports: No Symptoms Pulmonary: Reports: No Symptoms Cardiovascular: Reports: No Symptoms Gastrointestinal: Reports: No Symptoms Genitourinary: Reports: No Symptoms Musculoskeletal: Reports: No Symptoms Skin: Reports: No Symptoms Neurological: Reports: No Symptoms Psychiatric: Reports: No Symptoms - General Info Date of Service: 09/24/20 - Patient Data Vital Signs - Most Recent: Last Vital Signs Temp 36.6 C 09/23/20 22:48 Pulse 73 09/23/20 22:48 Resp 15 09/24/20 03:00 BP 112/64 09/23/20 22:48 Pulse Ox 96 09/23/20 22:48 Weight - Most Recent: 76 kg I&O - Last 24 Hours: Intake & Output 09/23/20 09/24/20 09/24/20 22:59 06:59 14:59 Intake Total 250 500 Balance 250 500 Med Orders - Current: Current Medications Acetaminophen (Acetaminophen 325 Mg Tab) 650 mg PO Q4H PRN PRN Reason: Abdominal Pain Last Admin: 09/24/20 06:50 Dose: 650 mg Documented by: Benzocaine (Benzocaine 20% Top [place] 56 Gm Bottle) 0 gm TOP Q4H PRN PRN Reason: to perianal area Bisacodyl (Bisacodyl 10 Mg Supp) 10 mg RECTAL BID PRN PRN Reason: Constipation Diphenhydramine HCl (Diphenhydramine 50 Mg/Ml Sdv) 25 mg IVPUSH Q6H PRN PRN Reason: Itching or Nausea Emollient Ointment (Lanolin 100% Cream 40 Gm Tube) 0 gm TOP ASDIRECTED PRN PRN Reason: TO NIPPLES Ephedrine Sulfate (Ephedrine 50 Mg/Ml Sdv) 5 mg IVPUSH ASDIRECTED PRN PRN Reason: Other Lactated Ringer's (Ringers, Lactated) 1,000 mls @ 125 mls/hr IV ASDIRECTED [facility] Last Admin: 09/22/20 20:58 Dose: 125 mls/hr Documented by: Ibuprofen (Ibuprofen 800 Mg Tab) 800 mg PO Q8H [facility] Last Admin: 09/24/20 03:20 Dose: 800 mg Documented by: Morphine Sulfate (Morphine 2 Mg/Ml Syringe) 1 - 4 mg IVPUSH Q1H PRN PRN Reason: Pain (severe 7-10) Last Admin: 09/23/20 10:28 Dose: 4 mg Documented by: Naloxone HCl (Naloxone 0.4 Mg/Ml Sdv) 0.1 mg IVPUSH ASDIRECTED PRN PRN Reason: Respiratory Depression Ondansetron HCl (Ondansetron 4 Mg Tab.Dis) 8 mg PO Q6H PRN PRN Reason: Nausea/Vomiting Oxycodone HCl (Oxycodone 5 Mg Tab) 5 - 10 mg PO Q4H PRN PRN Reason: Pain Last Admin: 09/24/20 06:51 Dose: 10 mg Documented by: Prenat Multivit/Antenna Machine Operator/Iron/Folic Ac ( Multivitamin With Calcium/Folic Acid/Iron Tab) 1 each PO DAILY [facility] Last Admin: 09/23/20 09:26 Dose: 1 each Documented by: Simethicone (Simethicone 80 Mg Tab.Chew) 80 mg PO Q4H PRN PRN Reason: Gas Witch Sandra (Witch Sandra Medicated Pads 100/Jar) 1 pad TOP ASDIRECTED PRN PRN Reason: to perineum Discontinued Medications Hydrocodone Bitart/Acetaminophen (Acetaminophen/Hydrocodone 325-5 Mg Tab) 1 tab PO Q4H PRN PRN Reason: Pain (moderate 4-6) Last Admin: 09/22/20 19:17 Dose: 1 tab Documented by: Benzocaine (Benzocaine 20% Top [place] 56 Gm Bottle) 0 gm TOP Q4H ONE Stop: 09/22/20 17:02 Last Admin: 09/22/20 18:45 Dose: Not Given Documented by: Cefazolin Sodium (Cefazolin 1 Gm Vial) Confirm Administered Dose 2 gm .ROUTE .STK-MED ONE Stop: 09/22/20 17:11 Emollient Ointment (Lanolin 100% Cream 40 Gm Tube) 0 gm TOP ASDIRECTED ONE Stop: 09/22/20 17:02 Last Admin: 09/22/20 20:16 Dose: Not Given Documented by: Ephedrine Sulfate (Ephedrine 50 Mg/Ml Sdv) Confirm Administered Dose 50 mg .ROUTE .STK-MED ONE Stop: 09/22/20 16:39 Fentanyl (Fentanyl 100 Mcg/2 Ml Sdv) 50 mcg IVPUSH ONETIME ONE Stop: 09/22/20 18:26 Last Admin: 09/22/20 18:33 Dose: 50 mcg Documented by: Sodium Chloride (Normal Saline) Confirm Administered Dose 20 mls @ as directed .ROUTE .STK-MED ONE Stop: 09/22/20 16:39 Lactated Ringer's (Ringers, Lactated) Confirm Administered Dose 1,000 mls @ as directed .ROUTE .STK-MED ONE Stop: 09/22/20 16:39 Sodium Chloride (Normal Saline) Confirm Administered Dose 10 mls @ as directed .ROUTE .STK-MED ONE Stop: 09/22/20 17:11 Ibuprofen (Ibuprofen 800 Mg Tab) 800 mg PO Q8H PRN PRN Reason: mild pain or fever Last Admin: 09/22/20 19:18 Dose: 800 mg Documented by: Ibuprofen (Ibuprofen 800 Mg Tab) 800 mg PO Q8H PRN PRN Reason: Pain Ondansetron HCl (Ondansetron 4 Mg/2 Ml Sdv) Confirm Administered Dose 4 mg .ROUTE .STK-MED ONE Stop: 09/22/20 16:39 Oxycodone HCl (Oxycodone 5 Mg Tab) 5 mg PO Q2H PRN PRN Reason: Pain (moderate 4-6) Last Admin: 09/23/20 02:17 Dose: 5 mg Documented by: Oxycodone HCl (Oxycodone 5 Mg Tab) 5 mg PO Q4H PRN PRN Reason: Pain (moderate 4-6) Last Admin: 09/23/20 05:41 Dose: 5 mg Documented by: Oxytocin (Oxytocin 10 Units/1 Ml Sdv) Confirm Administered Dose 20 unit .ROUTE .STK-MED ONE Stop: 09/22/20 16:39 Oxytocin (Oxytocin 10 Units/1 Ml Sdv) Confirm Administered Dose 10 unit .ROUTE .STK-MED ONE Stop: 09/22/20 16:46 Last Admin: 09/22/20 17:26 Dose: 10 unit Documented by: Phenylephrine HCl (Phenylephrine 1% 10 Mg/Ml Sdv) Confirm Administered Dose 10 mg .ROUTE .STK-MED ONE Stop: 09/22/20 16:39 Witch Sandra (Witch Sandra Medicated Pads 100/Jar) 1 pad TOP ASDIRECTED ONE Stop: 09/22/20 17:02 Last Admin: 09/22/20 20:16 Dose: Not Given Documented by: - Interaction Disposition, : in Room with Family Interaction: Holding Feeding: Bottle Fed Support Person: Significant Other - Recovery Exam Fundal Tone: [place] with Massage Fundal Level: 1 Fingerbreadths Below Umbilicus Fundal Placement: Midline Lochia Amount: Small Lochia Color: Rubra/Red Perineum Description: Intact, Minimal Bruising/Swelling Episiotomy/Laceration: None Bladder Status: Voiding Urinary Elimination: Voided - Exam General: Alert, Oriented HEENT: Pupils Equal, Pupils Reactive, Mucous Membr. Moist/[place] Neck: Supple Lungs: Clear to Auscultation, Normal Respiratory Effort Cardiovascular: Regular Rate, Regular Rhythm GI/Abdominal Exam: Normal Bowel Sounds, Soft, Non-Tender, No Abnormal Bruit, No Mass, Pelvis Stable Extremities: Normal Inspection, Normal Range of Motion, Non-Tender, No Pedal Edema, Normal Capillary Refill Skin: Warm, Dry, Intact Wound/Incisions: Healing Well, No Drainage. No: Erythema Neurological: No New Focal Deficit Psy/Mental Status: Alert, Normal Affect, Normal Mood - Problem List & Annotations (1) IUGR (intrauterine growth restriction) affecting care of mother SNOMED Code(s): 687573524 Code(s): O36.5990 - MATERN CARE FOR OTH OR SUSP POOR FETL GRTH, UNSP TRI, UNSP Status: Acute Current Visit: Yes (2) Term SNOMED Code(s): 77540374 Code(s): Z34.90 - ENCNTR FOR SUPRVSN OF NORMAL , UNSP, UNSP TRIMESTER Status: Acute Current Visit: Yes (3) delivery delivered SNOMED Code(s): 063423922 Code(s): O82 - ENCOUNTER FOR DELIVERY WITHOUT INDICATION Status: Acute Current Visit: Yes - Problem List Review Problem List Initiated/Reviewed/Updated: Yes - Assessment Assessment:: 09/23/20 Postop day one, pain somewhat poorly controlled overnight, more of a schedule for PRN pain medications today Catheter removed and patient has already voided Tolerating diet Up walking independently Incision is well approximated, no drainage or s/s of infection AVSS Hgb stable Formula feeding 09/24/20 Post op day 2, no complications, pain well controlled Voiding without problems Incision well approximated, no s/s of infection, no drainage Patient is up walking, tolerating diet, feels well Bonding well with baby, no concerns - Plan Plan:: 09/22/20 here for repeat section at 37 4/7 weeks due to IUGR and umbilical artery doppler at upper limits BPP 8/8 NST reactive EFW 5 lb 5 oz on US today UDS has been negative all of O positive blood type GBS negative rubella immune HIV/hep B/C/RPR all non reactive Plan: Repeat section today, non urgent Plans to bottle feed Anticipate boy 09/23/20 Routine cares and education Contact [facility] today to let them know patient delivered, active case management rn, no known issues Work on pain control today Anticipate discharge tomorrow or 09/24/20 Routine cares and education Discharge home today with baby, social work program coordinator contacted yesterday and no concerns for discharge home as anticipated Prescription for oxycodone given by surgeon 2 week post op check along with 6 week check
[2020-09-24] MEDS: Prenatal Multivitamin with Calcium/Folic Acid/Iron Tab PO SCH (08:47)
[2020-09-26 09:09] LABS: 6-MONOACETYLMORPHINE - FREE None Detected ng/g (.); 7-AMINO CLONAZEPAM None Detected ng/g (.); ALPRAZOLAM None Detected ng/g (.); BENZOYLECGONINE None Detected ng/g (.); COCAINE None Detected ng/g (.); CODEINE - FREE None Detected ng/g (.); FLUNITRAZEPAM None Detected ng/g (.); FLURAZEPAM None Detected ng/g (.); HYDROCODONE - FREE None Detected ng/g (.); HYDROMORPHONE - FREE None Detected ng/g (.); MORPHINE - FREE None Detected ng/g (.); NORBUPRENORPHINE - FREE None Detected ng/g (.); TRIAZOLAM None Detected ng/g (.)
== END 2020-09-24 09:05 | disposition home or self-care (01) | DRG 788 ==
LOC: JP.OB 15:25 → JP.MS 18:50
PROVIDERS: ADMIT Advanced Practice Midwife; ATTEND Advanced Practice Midwife
PROC: 10D00Z1 Extraction of Products of Conception, Low, Open Approach (ICD-10-PCS; principal; 2020-09-22)
DX: O36.5930 Maternal care for other known or suspected poor fetal growth, third trimester, not applicable or unspecified (principal); Z37.0 Single live birth; O34.211 Maternal care for low transverse scar from previous cesarean delivery; Z20.822 Contact with and (suspected) exposure to COVID-19; Z3A.37 37 weeks gestation of pregnancy; Z88.0 Allergy status to penicillin
CPT/HCPCS: 0241U; 36415; 80048; 80305-QW; 80307; 81001; 85025; 85027; 86850; 86900; 86901; A9270-GY; J0690; J2270; J2370; J2405; J2590; J3010; J7120; U0002